=== PATIENT | female | born 1995 | race Caucasian/White ===

== ENCOUNTER 2022-12-07 13:06 | Emergency (ER) | payer SELFPAY ==
[~2022-12-07] VITALS: Ht 162.6 cm; Wt 113.4 kg
[2022-12-07 14:00] LABS: STREPTOCOCCUS GRP A ANTIGEN POSITIVE (NEGATIVE)
[2022-12-07] MEDS ORDERED: AMOXICILLIN500 MG PO (14:31)
== END 2022-12-07 14:39 | disposition home or self-care (01) ==
LOC: ER 13:25
DX: O26.891 Other specified pregnancy related conditions, first trimester (principal); J02.0 Streptococcal pharyngitis; H92.03 Otalgia, bilateral; Z20.822 Contact with and (suspected) exposure to COVID-19
CPT/HCPCS: 83518; 99283; U0002